=== PATIENT | female | born 1970 | race Caucasian/White ===

== ENCOUNTER → 2017-06-15 | Outpatient (CLI) | payer BC | END | disposition home or self-care (01) | LOC: CFH 10:46 | PROVIDERS: ATTEND Nurse Practitioner | DX: Z12.31 Encounter for screening mammogram for malignant neoplasm of breast (principal); N64.89 Other specified disorders of breast | CPT/HCPCS: G0202 ==

== ENCOUNTER → 2018-05-20 | Outpatient (CLI) | payer OTHER ==
[~2018-05-20] MED LIST: ASPI-496 PO; ATOR10TA9 PO; DIPH25CA61 PO; GLIM2TAB2 PO; HYDR25TA6 PO; LINA5TAB PO; LISI40TA PO; LORA-439 PO; MELA1TAB8 PO; METF500T17 PO; METO50TA82 PO; NAPR-685 PO; NORE0.3513 PO
[2018-05-20 12:35] LABS: ALANINE AMINOTRANSFERASE 33 U/L (12-78); ALBUMIN 3.6 g/dL (3.4-5.0); ANION GAP 9 mmol/L (5-15); CALCIUM 8.7 mg/dL (8.5-10.1); CHLORIDE 104 mmol/L (98-107); CREATININE 0.96 mg/dL (0.55-1.02)
[2018-05-20 12:38] LABS: ALKALINE PHOSPHATASE 22 U/L (45-117); BILIRUBIN,TOTAL 0.3 mg/dL (0.2-1.0); TOTAL PROTEIN 7.3 g/dL (6.4-8.2)
== END | disposition home or self-care (01) ==
LOC: STAR 11:24
PROVIDERS: ATTEND Surgery
DX: Z01.818 Encounter for other preprocedural examination (principal); K44.9 Diaphragmatic hernia without obstruction or gangrene; Z88.2 Allergy status to sulfonamides
CPT/HCPCS: 36415; 80053; 93005

== ENCOUNTER 2018-05-26 09:00 | Day surgery (SDC) | payer OTHER ==
[~2018-05-26] VITALS: Ht 172.7 cm; Wt 101.1 kg
[~2018-05-26 09:00] MED LIST changes: +BUPIVACAINE/PF-EPI 0.5% 1:200K ONE
[2018-05-26] MEDS ORDERED: LACTATED RINGERS 1,000 ML IV SCH (09:33)
[2018-05-26 09:41] LABS: HCG UR SG 1.022 (1.003-1.030)
[2018-05-26] MEDS ORDERED: GABAPENTIN 300 MG CAPSULE PO ONE (10:00)
[2018-05-26] MEDS ORDERED: MEPERIDINE/PF 25MG/0.5ML IVPush PRN (10:00)
[2018-05-26] MEDS ORDERED: ACETAMINOPHEN 500 MG TABLET PO ONE (10:00)
[2018-05-26] MEDS ORDERED: hydrALAzine 20 MG/ML, 1ML IV PRN (10:00)
[2018-05-26] MEDS ORDERED: DIPHENHYDRAMINE 50 MG/ML, 1ML IVPush PRN (10:00)
[2018-05-26] MEDS ORDERED: LABETALOL 5MG/ML, 20ML IV PRN (10:00)
[2018-05-26] MEDS ORDERED: PROCHLORPERAZINE 5 MG/ML, 2ML IV PRN (10:00)
[2018-05-26] MEDS ORDERED: FENTANYL PF 250 MCG/5ML ONE (10:13)
[2018-05-26] MEDS ORDERED: ESMOLOL 100 MG/10 ML ONE (10:56)
[2018-05-26] MEDS ORDERED: ALBUTEROL SULFATE 200 PUFFS/8.5 GR INH ONE (10:56)
[2018-05-26] MEDS ORDERED: ROCURONIUM 10MG/ML,5ML ONE (11:34)
[2018-05-26] MEDS ORDERED: DEXAMETHASONE 4 MG/ML, 1ML ONE (11:34)
[2018-05-26] MEDS ORDERED: PROPOFOL 10 MG/ML, 20ML ONE (11:34)
[2018-05-26] MEDS ORDERED: CEFAZOLIN 1,000 MG ONE (11:34)
[2018-05-26] MEDS ORDERED: SUCCINYLCHOLINE 20 MG/ML, 10ML ONE (11:34)
[2018-05-26] MEDS ORDERED: GLYCOPYRROLATE 0.2MG/1ML, 5ML ONE (11:34)
[2018-05-26] MEDS ORDERED: NEOSTIGMINE 1 MG/ML, 10ML ONE (11:34)
[2018-05-26] MEDS ORDERED: ONDANSETRON 2MG/ML, 2ML ONE (11:34)
[2018-05-26] MEDS ORDERED: LORazepam 2 MG/ML, 1ML ONE (12:15)
[2018-05-26] MEDS ORDERED: FENTANYL PF 100 MCG/2ML ONE (12:15)
[2018-05-26] MEDS: FENTANYL PF 100 MCG/2ML IV PRN ×2 (12:18→12:23)
[2018-05-26] MEDS ORDERED: LORazepam 2 MG/ML, 1ML IVPush PRN (12:30)
[2018-05-26] MEDS: HYDROmorphone 1 MG/ML, 1ML IV PRN ×3 (12:40→13:14)
[2018-05-26] MEDS: OXYcodone 5 MG/5 ML ORAL.SOL UDC PO PRN ×2 (12:41→14:04)
[2018-05-26] MEDS ORDERED: HYDROmorphone 2 MG/ML, 1ML ONE (13:56)
[2018-05-26] MEDS ORDERED: morphine SULFATE 10 MG/ML, 1ML ONE (14:00)
[2018-05-26] MEDS ORDERED: OXYcodone/APAP 5/325MG TABLET PO PRN (14:00)
[2018-05-26] MEDS ORDERED: morphine SULFATE 10 MG/ML, 1ML IVPush PRN (14:00)
[2018-05-26] MEDS ORDERED: ONDANSETRON 2MG/ML, 2ML IVPush PRN (14:00)
== END 2018-05-26 18:40 | disposition home or self-care (01) ==
LOC: OUT 09:00
PROVIDERS: ATTEND Surgery
DX: K43.6 Other and unspecified ventral hernia with obstruction, without gangrene (principal); E11.9 Type 2 diabetes mellitus without complications; I10 Essential (primary) hypertension; E78.5 Hyperlipidemia, unspecified; Z88.1 Allergy status to other antibiotic agents; Z79.899 Other long term (current) drug therapy
CPT/HCPCS: 49653; 81025; 82962; J0330; J0690; J1100; J1170; J2060; J2270; J2405; J2704; J2710; J3010; J3490; J7120; S2900; C1781

== ENCOUNTER 2018-05-28 22:09 | Inpatient (IN) | payer OTHER ==
[~2018-05-28] VITALS: Ht 172.7 cm; Wt 105.0 kg
[~2018-05-28 22:09] MED LIST changes: -BUPIVACAINE/PF-EPI 0.5% 1:200K ONE
[2018-05-28] MEDS ORDERED: ONDANSETRON 2MG/ML, 2ML IVPush ONE (22:30)
[2018-05-28] MEDS ORDERED: MORPHINE SULFATE 4 MG/ML, 1ML ONE (22:37)
[2018-05-28] MEDS ORDERED: ONDANSETRON 2MG/ML, 2ML ONE (22:37)
[2018-05-28 22:43] LABS: MICROSCOPIC NOT IND
[2018-05-28 22:46] LABS: CULTURE INDICATED? NO
[2018-05-28 22:48] LABS: BASOPHILS # (AUTO) 0.08 x10^3/uL (0-0.1); BASOPHILS % (AUTO) 1 % (0-1); EOSINOPHILS # (AUTO) 0.32 x10^3/uL (0-0.4); EOSINOPHILS % (AUTO) 3 % (1-7); LYMPHOCYTES % (AUTO) 49 % (22-44); MD NO; MEAN CORPUSCULAR HEMOGLOBIN 29.5 pg (27.0-34.8); MEAN CORPUSCULAR HGB CONC 34.1 g/dL (32.4-35.8); MEAN CORPUSCULAR VOLUME 86.5 fL (80-100); MEAN PLATELET VOLUME 7.4 fL (7.4-10.4); MONOCYTES # (AUTO) 0.71 x10^3/uL (0.2-0.8); MONOCYTES % (AUTO) 7 % (2-9); NEUTROPHILS # (AUTO) 3.82 x10^3/uL (1.8-6.8); NEUTROPHILS % (AUTO) 39 % (42-75); PLATELET COUNT 263 x10^3/uL (130-400); RED BLOOD COUNT 5.24 x10^6/uL (3.82-5.3); RED CELL DISTRIBUTION WIDTH 12.3 % (9.6-15.2)
[2018-05-28] MEDS: MORPHINE SULFATE 4 MG/ML, 1ML IVPush PRN (22:52)
[2018-05-28 22:57] LABS: ALANINE AMINOTRANSFERASE 36 U/L (12-78); ALBUMIN 3.4 g/dL (3.4-5.0); ANION GAP 10 mmol/L (5-15); CALCIUM 8.4 mg/dL (8.5-10.1); CHLORIDE 106 mmol/L (98-107); CREATININE 0.81 mg/dL (0.55-1.02)
[2018-05-28 23:00] LABS: ALKALINE PHOSPHATASE 25 U/L (45-117); BILIRUBIN,TOTAL 0.3 mg/dL (0.2-1.0); TOTAL PROTEIN 6.9 g/dL (6.4-8.2)
[2018-05-28] MEDS ORDERED: OMNIPAQUE 350 MG/ML, 100ML BOTTLE ONE (23:10)
[2018-05-29] MEDS ORDERED: MORPHINE SULFATE 4 MG/ML, 1ML ONE (00:03)
[2018-05-29] MEDS: MORPHINE SULFATE 4 MG/ML, 1ML IVPush PRN (00:07)
[2018-05-29] MEDS ORDERED: SODIUM CHLORIDE 0.9% 1,000 ML IV ONE (01:10)
[2018-05-29] MEDS ORDERED: HYDROmorphone 2 MG/ML, 1ML ONE ×2 (01:15→08:26)
[2018-05-29] MEDS ORDERED: ONDANSETRON 2MG/ML, 2ML IVPush PRN (01:30)
[2018-05-29] MEDS ORDERED: DIPHENHYDRAMINE 25 MG CAPSULE PO PRN (01:30)
[2018-05-29] MEDS ORDERED: ONDANSETRON ODT 4 MG PO PRN (01:30)
[2018-05-29] MEDS ORDERED: HYDROmorphone 1 MG/ML, 1ML IVPush PRN (01:30)
[2018-05-29 02:06] VITALS: BP 118/74
[2018-05-29] MEDS: SODIUM CHLORIDE 0.9% 1,000 ML IV SCH ×2 (02:53→15:45)
[2018-05-29] MEDS: HEPARIN 5,000 UNITS/ML, 1ML SQ SCH ×3 (02:54→19:56)
[2018-05-29 02:58] VITALS: BP 118/74
[2018-05-29] MEDS: morphine SULFATE 10 MG/ML, 1ML IVPush PRN ×2 (05:10→16:03)
[2018-05-29] MEDS ORDERED: HYDROmorphone 1 MG/ML, 1ML IV ONE (05:30)
[2018-05-29] MEDS: INSULIN LISPRO 100 UNITS/ML, PEN SQ-INSULIN SCH ×4 (08:32→23:07)
[2018-05-29] MEDS: GLIMEPIRIDE 1 MG TABLET PO SCH ×2 (08:32→19:55)
[2018-05-29] MEDS: LINAGLIPTIN 5 MG TAB PO SCH (08:33)
[2018-05-29] MEDS: METOPROLOL TARTRATE 50 MG TABLET PO SCH ×2 (08:33→19:59)
[2018-05-29] MEDS: HYDROCHLOROTHIAZIDE 25 MG TABLET PO SCH (08:33)
[2018-05-29] MEDS: metFORMIN 500 MG TABLET PO SCH ×2 (08:33→19:56)
[2018-05-29] MEDS: ASPIRIN 81 MG TABLET CHEW PO SCH ×2 (08:34→19:56)
[2018-05-29 09:22] VITALS: BP 150/87
[2018-05-29] MEDS ORDERED: LACTULOSE 10 GM/15 ML UDC PO PRN (11:00)
[2018-05-29] MEDS: POLYETHYLENE GLYCOL 17 GM PACKET NG PRN (11:50)
[2018-05-29] MEDS: ACETAMINOPHEN 325 MG TABLET PO PRN ×2 (11:58→23:29)
[2018-05-29] MEDS: OXYcodone 5 MG/5 ML ORAL.SOL UDC PO PRN ×3 (12:36→23:47)
[2018-05-29 14:12] VITALS: BP 123/75
[2018-05-29 18:54] VITALS: BP 150/85
[2018-05-29] MEDS: ATORVASTATIN 10 MG TABLET PO SCH (19:55)
[2018-05-30 01:50] VITALS: BP 145/81
[2018-05-30] MEDS: OXYcodone 5 MG/5 ML ORAL.SOL UDC PO PRN ×4 (04:39→20:22)
[2018-05-30] MEDS: ACETAMINOPHEN 325 MG TABLET PO PRN (04:40)
[2018-05-30] MEDS: HEPARIN 5,000 UNITS/ML, 1ML SQ SCH ×2 (04:40→11:58)
[2018-05-30] MEDS: SODIUM CHLORIDE 0.9% 1,000 ML IV SCH (04:40)
[2018-05-30 05:47] LABS: BASOPHILS # (AUTO) 0.08 x10^3/uL (0-0.1); BASOPHILS % (AUTO) 1 % (0-1); EOSINOPHILS # (AUTO) 0.51 x10^3/uL (0-0.4); EOSINOPHILS % (AUTO) 7 % (1-7); LYMPHOCYTES # (AUTO) 3.77 x10^3/uL (1-3.4); LYMPHOCYTES % (AUTO) 49 % (22-44); MD NO; MEAN CORPUSCULAR HEMOGLOBIN 30.4 pg (27.0-34.8); MEAN CORPUSCULAR HGB CONC 34.8 g/dL (32.4-35.8); MEAN CORPUSCULAR VOLUME 87.3 fL (80-100); MEAN PLATELET VOLUME 7.6 fL (7.4-10.4); MONOCYTES # (AUTO) 0.62 x10^3/uL (0.2-0.8); MONOCYTES % (AUTO) 8 % (2-9); NEUTROPHILS # (AUTO) 2.71 x10^3/uL (1.8-6.8); NEUTROPHILS % (AUTO) 35 % (42-75); PLATELET COUNT 215 x10^3/uL (130-400); RED BLOOD COUNT 4.54 x10^6/uL (3.82-5.3); RED CELL DISTRIBUTION WIDTH 11.8 % (9.6-15.2)
[2018-05-30 05:51] LABS: ANION GAP 10 mmol/L (5-15); CALCIUM 8.2 mg/dL (8.5-10.1); CHLORIDE 105 mmol/L (98-107); CREATININE 0.74 mg/dL (0.55-1.02)
[2018-05-30 06:28] VITALS: BP 138/86
[2018-05-30] MEDS: INSULIN LISPRO 100 UNITS/ML, PEN SQ-INSULIN SCH ×4 (07:00→20:23)
[2018-05-30] MEDS: GLIMEPIRIDE 1 MG TABLET PO SCH ×2 (08:24→20:23)
[2018-05-30] MEDS: LINAGLIPTIN 5 MG TAB PO SCH (08:25)
[2018-05-30] MEDS: HYDROCHLOROTHIAZIDE 25 MG TABLET PO SCH (08:25)
[2018-05-30] MEDS: METOPROLOL TARTRATE 50 MG TABLET PO SCH (08:25)
[2018-05-30] MEDS: metFORMIN 500 MG TABLET PO SCH ×2 (08:25→20:23)
[2018-05-30] MEDS ORDERED: MAGNESIUM SULFATE PMX 2GM/50ML 50 ML IV ONE (08:30)
[2018-05-30] MEDS: ACETAMINOPHEN 500 MG TABLET PO SCH ×3 (10:45→23:30)
[2018-05-30] MEDS: GABAPENTIN 100 MG CAPSULE PO SCH ×3 (10:45→20:23)
[2018-05-30 12:23] VITALS: BP 160/90
[2018-05-30] MEDS: POLYETHYLENE GLYCOL 17 GM PACKET NG PRN (12:39)
[2018-05-30] MEDS ORDERED: ENOXAPARIN 40 MG/0.4 ML SQ SCH (16:00)
[2018-05-30 18:32] VITALS: BP 151/90
[2018-05-30] MEDS: DOCUSATE 100 MG CAPSULE PO SCH (20:23)
[2018-05-30] MEDS: ASPIRIN 81 MG TABLET CHEW PO SCH (20:23)
[2018-05-30] MEDS: ATORVASTATIN 10 MG TABLET PO SCH (20:23)
[2018-05-31 01:26] VITALS: BP 136/84
[2018-05-31] MEDS: OXYcodone 5 MG/5 ML ORAL.SOL UDC PO PRN ×3 (02:12→10:29)
[2018-05-31] MEDS: GABAPENTIN 100 MG CAPSULE PO SCH (05:51)
[2018-05-31] MEDS: ACETAMINOPHEN 500 MG TABLET PO SCH (05:51)
[2018-05-31] MEDS: INSULIN LISPRO 100 UNITS/ML, PEN SQ-INSULIN SCH (07:00)
[2018-05-31 08:01] VITALS: BP 155/85
[2018-05-31] MEDS: GLIMEPIRIDE 1 MG TABLET PO SCH (08:05)
[2018-05-31] MEDS: ASPIRIN 81 MG TABLET CHEW PO SCH (08:06)
[2018-05-31] MEDS: METOPROLOL TARTRATE 50 MG TABLET PO SCH (08:06)
[2018-05-31] MEDS: LINAGLIPTIN 5 MG TAB PO SCH (08:06)
[2018-05-31] MEDS: metFORMIN 500 MG TABLET PO SCH (08:06)
[2018-05-31] MEDS: DOCUSATE 100 MG CAPSULE PO SCH (08:06)
[2018-05-31] MEDS: HYDROCHLOROTHIAZIDE 25 MG TABLET PO SCH (08:06)
[2018-05-31] MEDS ORDERED: LISINOPRIL 20 MG TABLET PO SCH (09:00)
[2018-05-31] MEDS ORDERED: ACET500T71 PO (09:24)
[2018-05-31] MEDS ORDERED: GABA-826 PO (09:24)
[2018-05-31] MEDS ORDERED: OXYC5TAB3 PO (09:24)
== END 2018-05-31 10:44 | disposition home or self-care (01) | DRG 920 ==
LOC: ED 22:48 → SUATTDRO 05-29 01:07 → EDIP 05-29 01:14 → 4NOR 05-29 01:35 → DCLOUNGE 05-31 10:35
PROVIDERS: ADMIT Hospitalist; ATTEND Hospitalist
DX: K91.872 Postprocedural seroma of a digestive system organ or structure following a digestive system procedure (principal); J98.11 Atelectasis; E11.65 Type 2 diabetes mellitus with hyperglycemia; E66.9 Obesity, unspecified; Z68.35 Body mass index [BMI] 35.0-35.9, adult; E78.5 Hyperlipidemia, unspecified; I10 Essential (primary) hypertension; E83.42 Hypomagnesemia; K76.0 Fatty (change of) liver, not elsewhere classified; Y83.8 Other surgical procedures as the cause of abnormal reaction of the patient, or of later complication, without mention of misadventure at the time of the procedure; Z90.49 Acquired absence of other specified parts of digestive tract
CPT/HCPCS: 36415; 74177; 80048; 80053; 81003; 82040; 82962; 83690; 83735; 84100; 85025; 96374; 96375; G0378; J1170; J1644; J1650; J2405; Q9967; J1815; J2270; J3475; J7030

== ENCOUNTER → 2019-07-18 | Outpatient (CLI) | payer OTHER ==
[~2019-07-18] MED LIST changes: +ACET500T64 PO; +GABA-826 PO; -GLIM2TAB2 PO; +GLIM2TAB3 PO; +OXYC5TAB3 PO
== END | disposition home or self-care (01) ==
LOC: CFH 15:44
PROVIDERS: ATTEND Internal Medicine Cardiovascular Disease
DX: I11.9 Hypertensive heart disease without heart failure (principal)
CPT/HCPCS: 93306